=== PATIENT | female | born 1965 | race American Indian/Alaskan Native ===

== ENCOUNTER 2016-04-24 08:13 | Outpatient (CLI) | payer OTHER ==
--- NOTE | 2016-04-24 08:58 | Ultrasound Report ---
Mid back ultrasound: The patient presents with a history of feeling a lump just below her bra in the lower back for approximately 2 months. Imaging over the area of concern demonstrates a subcutaneous heterogeneously hypoechoic mass with partially defined smooth margins. It has a depth of 2.6 cm, width of approximately 4 cm and a height of 3.6 cm. No significant internal vascularity with color imaging. Impression: Nonspecific finding. This is consistent with a lipoma. Recommendation: Consider percutaneous biopsy if removal is not performed.
== END 2016-04-24 08:14 | disposition home or self-care (01) ==
LOC: SPVWC 08:13
PROVIDERS: ATTEND Family Medicine
DX: R22.2 Localized swelling, mass and lump, trunk (principal)
CPT/HCPCS: 76999

== ENCOUNTER 2017-01-15 15:10 | Outpatient (CLI) | payer OTHER ==
--- NOTE | 2017-01-15 16:17 | Mammography Report ---
BILATERAL MAMMOGRAM: FINDINGS: The breasts are almost entirely fat (<25% glandular). No suspicious mass, distortion, calcification, or skin change is seen. Right biopsy marker. No significant change compared to prior exams dating back to 2015. CAD was utilized. IMPRESSION: Negative mammogram. There is no mammographic evidence of malignancy. RECOMMENDATION: Follow-up per ACS guidelines. BI-RADS CATEGORY: 1 = Negative ACR BI-RADS MAMMOGRAPHIC CODES: 0 = Needs additional imaging evaluation; 1 = Negative; 2 = Benign; 3 = Probably benign; 4 = Suspicious; 5 = Malignant; 6 = Known biopsy-proven malignancy COMMENT: 1. Dense breast tissue, i.e., adenosis, fibrocystic changes, etc., may obscure an underlying neoplasm. 2. Approximately 10% of cancers are not detected with mammography. 3. A negative mammography report should not delay biopsy if a clinically suspicious mass is present. COMMENT: Patient follow-up letters are generated in [employer].
== END 2017-01-15 15:11 | disposition home or self-care (01) ==
LOC: SPVWC 15:10
PROVIDERS: ATTEND Family Medicine
DX: Z12.31 Encounter for screening mammogram for malignant neoplasm of breast (principal)
CPT/HCPCS: 77067; G0202

== ENCOUNTER 2018-01-19 10:35 | Outpatient (CLI) | payer OTHER ==
--- NOTE | 2018-01-19 16:13 | Mammography Report ---
BILATERAL DIGITAL SCREENING MAMMOGRAM with CAD: 01/19/18 10:35:00 CLINICAL: Routine screening. COMPARISON:01/15/17 and 01/19/16 FINDINGS: The breasts are almost entirely fatty.Right upper inner biopsy clip. Stable bilateral circumscribed masses. No new mass, architectural distortion or suspicious calcifications. IMPRESSION: No mammographic evidence of malignancy. BI-RADS CATEGORY: 2 -- Benign RECOMMENDATION: Routine mammographic screening in one year. COMMENT: Patient follow-up letters are generated by our [employer] application.
== END 2018-01-19 10:36 | disposition home or self-care (01) ==
LOC: SPVWC 10:35
PROVIDERS: ATTEND Family Medicine
DX: Z12.31 Encounter for screening mammogram for malignant neoplasm of breast (principal)
CPT/HCPCS: 77067

== ENCOUNTER 2019-02-22 11:51 | Outpatient (CLI) | payer OTHER ==
--- NOTE | 2019-02-23 14:58 | Mammography Report ---
DIGITAL SCREENING MAMMOGRAM WITH CAD, 02/22/2019 INDICATION: Routine screening mammography. TECHNIQUE: Digital bilateral 2D mammography was obtained in the craniocaudal and mediolateral obliq ue projections. This examination was interpreted with the benefit of Computer-Aided Detection analysi s. COMPARISON: 01/19/2018 and 12/09/2014 FINDINGS: Breast Density: The breasts are almost entirely fatty. There is no evidence of new mass, suspicious calcifications or architectural distortion in either blanca ast. Stable bilateral low-density circumscribed masses. A right inner biopsy clip and stable density at the clip. IMPRESSION: No mammographic evidence of malignancy. Follow up recommendation: Routine yearly BI-RADS Category 2: Benign. A "normal" or negative report should not discourage follow up or biopsy of a clinically significant f inding. A written summary of these findings will be mailed to the patient. The patient will be entered into a mammography reporting system which will generate a reminder letter for the patient's next appointmen t at the appropriate interval. The [employer] recommends yearly mammograms starting at age 40 and continuing as l lazaro as a woman is in good health. Breast MRI is recommended for women with an approximate 20-25% or greater lifetime risk of breast cancer, including women with a strong family history of breast or ova brandy cancer or who have been treated for Hodgkin's disease. Signer Name: Andrez Santamaria MD Signed: 02/23/2019 2:53 PM Workstation Name: [id number]
== END 2019-02-22 11:52 | disposition home or self-care (01) ==
LOC: SPVWC 11:51
PROVIDERS: ATTEND Family Medicine
DX: Z12.31 Encounter for screening mammogram for malignant neoplasm of breast (principal)
CPT/HCPCS: 77067

== ENCOUNTER 2020-02-24 14:47 | Outpatient (CLI) | payer OTHER ==
--- NOTE | 2020-02-24 16:42 | Mammography Report ---
DIGITAL SCREENING MAMMOGRAM WITH CAD, 02/24/2020 CLINICAL INFORMATION / INDICATION: Routine screening mammography. TECHNIQUE: Digital bilateral 2D mammography was obtained in the craniocaudal and mediolateral obliqu e projections. This examination was interpreted with the benefit of Computer-Aided Detection analysis . COMPARISON: 02/22/2019 FINDINGS: Breast Density: There are scattered areas of fibroglandular density. No dominant mass, suspicious calcifications, or architectural distortion in either breast. Right biopsy changes are again seen. Right calcifications and mild bilateral nodularity are stable. IMPRESSION: No mammographic evidence of malignancy. Follow up recommendation: Routine yearly BI-RADS Category 2: Benign. A "normal" or negative report should not discourage follow up or biopsy of a clinically significant f inding. A written summary of these findings will be mailed to the patient. The patient will be entered into a mammography reporting system which will generate a reminder letter for the patient's next appointmen t at the appropriate interval. The [employer] recommends yearly mammograms starting at age 40 and continuing as l lazaro as a woman is in good health. Breast MRI is recommended for women with an approximate 20-25% or greater lifetime risk of breast cancer, including women with a strong family history of breast or ova brandy cancer or who have been treated for Hodgkin's disease. Signer Name: Abraham Vázquez MD Signed: 02/24/2020 4:38 PM Workstation Name: [id number]
== END 2020-02-24 14:48 | disposition home or self-care (01) ==
LOC: SPVWC 14:47
PROVIDERS: ATTEND Family Medicine
DX: Z12.31 Encounter for screening mammogram for malignant neoplasm of breast (principal)
CPT/HCPCS: 77067

== ENCOUNTER 2021-04-21 15:00 | Emergency (ER) | payer OTHER ==
[2021-04-21 19:38] VITALS: BP 237/105
[2021-04-21] MEDS ORDERED: KETOROLAC 60 MG/2 ML INJ IM ONE (20:25)
[2021-04-21] MEDS ORDERED: ONDANSETRON 4 MG ODT TAB PO/SL ONE (20:25)
[2021-04-21 20:50] LABS: Alanine Aminotransferase 30 units/L (7-56); Albumin 4.3 g/dL (3.9-5); Blood Urea Nitrogen 12 mg/dL (7-17); Calcium 9.2 mg/dL (8.4-10.2); Hemolysis Index 0
[2021-04-21 21:05] LABS: BUN/Creatinine Ratio 30
[2021-04-21 21:06] LABS: Basophils % (Auto) 0.3 % (0.0-1.8); Hematocrit 44.4 % (30.3-42.9); Lymphocytes # (Auto) 1.9 K/mm3 (1.2-5.4); Lymphocytes % (Auto) 16.1 % (13.4-35.0); Mean Corpuscular HGB Conc 34 % (30-34); Mean Corpuscular Volume 81 fl (79-97); Monocytes # (Auto) 0.6 K/mm3 (0.0-0.8); Monocytes % (Auto) 4.7 % (0.0-7.3); Platelet Count 275 K/mm3 (140-440); Red Blood Count 5.47 M/mm3 (3.65-5.03)
--- NOTE | 2021-04-21 22:59 | Cat Scan Report ---
CT abdomen pelvis wo con INDICATION / CLINICAL INFORMATION: pain. TECHNIQUE: Axial CT imaging of abdomen and pelvis was obtained without contrast. Coronal and sagittal reformatte d imaging obtained and reviewed. All CT scans at this location are performed using CT dose reduction for ALARA by means of automated exposure control. COMPARISON: None available. FINDINGS: CT abdomen without contrast demonstrates grossly normal appearance of the liver, spleen, pancreas, an d adrenal glands. Gallbladder is present without obvious abnormality. Small hiatal hernia. There is mild to moderate right hydronephrosis present. Hydronephrosis is caused by a 5 mm calculus i n the right ureteral orifice. This calculus is on the verge of being passed into the urinary bladder. No residual calculi are seen within the right kidney. The left kidney contains intrarenal calculi but without obstruction. The largest calculus within the left kidney is 9 mm, mid pole region. A few tiny calculi are seen in the lower pole calyx. CT pelvis without contrast demonstrates moderate diverticulosis throughout the sigmoid colon. No pelv ic mass, free fluid, or focal inflammatory changes noted. A normal appendix is identified in the righ t lower quadrant. GI tract is otherwise unremarkable. Uterus is absent. Visualized lung bases are grossly clear. No acute osseous abnormality of significance. IMPRESSION: 1. Mild to moderate right hydronephrosis caused by a 5 mm calculus in the distal right ureter at the UVJ. 2. Left nephrolithiasis without obstruction. 3. Sigmoid diverticulosis. Signer Name: Justine Gorman MD Signed: 04/21/2021 10:55 PM Workstation Name: [id number]
--- NOTE | 2021-04-21 23:13 | Emergency Department Report ---
ED Abdominal Pain HPI - General Chief Complaint: Abdominal Pain Stated Complaint: ABD PAIN Time Seen by Provider: 04/21/21 20:23 Source: patient Mode of arrival: Ambulatory Limitations: No Limitations - History of Present Illness Initial Comments: rt flank pain today with nausea nof ever no rash -: Gradual, hour(s) Location: R flank Severity scale (0 -10): 7 Quality: aching Consistency: constant Worsens With: nothing - Related Data Previous Rx's Medication Instructions Recorded Last Taken Type Acetaminophen/Codeine [Tylenol 1 tab PO Q6H PRN #14 tab 04/21/21 Unknown Rx /Codeine # 3 tab] Ketorolac [Toradol] 10 mg PO Q6H PRN #14 tablet 04/21/21 Unknown Rx Allergies Allergy/AdvReac Type Severity Reaction Status Date / Time No Known Allergies Allergy Unverified 04/21/21 19:35 ED Review of Systems ROS: Stated complaint: ABD PAIN Other details as noted in HPI Constitutional: denies: chills, fever Eyes: denies: eye pain, eye discharge, vision change ENT: denies: ear pain, throat pain Respiratory: denies: cough, shortness of breath, wheezing Cardiovascular: denies: chest pain, palpitations Endocrine: no symptoms reported Gastrointestinal: denies: abdominal pain, nausea, diarrhea Genitourinary: denies: urgency, dysuria, discharge Musculoskeletal: denies: back pain, joint swelling, arthralgia Skin: denies: rash, lesions Neurological: denies: headache, weakness, paresthesias Psychiatric: denies: anxiety, depression Hematological/Lymphatic: denies: easy bleeding, easy bruising ED Past Medical Hx - Past Medical History Previous Medical History?: No - Surgical History Past Surgical History?: No - Medications Home Medications: Home Medications Medication Instructions Recorded Confirmed Last Taken Type Acetaminophen/Codeine [Tylenol 1 tab PO Q6H PRN #14 tab 04/21/21 Unknown Rx /Codeine # 3 tab] Ketorolac [Toradol] 10 mg PO Q6H PRN #14 tablet 04/21/21 Unknown Rx ED Physical Exam - General Limitations: No Limitations General appearance: alert, in no apparent distress - Head Head exam: Present: atraumatic, normocephalic - Eye Eye exam: Present: normal appearance - ENT ENT exam: Present: mucous membranes moist - Neck Neck exam: Present: normal inspection - Respiratory Respiratory exam: Present: normal lung sounds bilaterally. Absent: respiratory distress - Cardiovascular Cardiovascular Exam: Present: regular rate, normal rhythm. Absent: systolic murmur, diastolic murmur, rubs, gallop - GI/Abdominal GI/Abdominal exam: Present: soft, tenderness, normal bowel sounds - Rectal Rectal exam: Present: tenderness - Extremities Exam Extremities exam: Present: normal inspection - Back Exam Back exam: Present: normal inspection - Neurological Exam Neurological exam: Present: alert, oriented X3 - Psychiatric Psychiatric exam: Present: normal affect, normal mood - Skin Skin exam: Present: warm, dry, intact, normal color. Absent: rash ED Course Vital Signs 04/21/21 19:35 Temperature 97.5 F L Respiratory 18 Rate Blood Pressure 237/105 ED Medical Decision Making - Lab Data Result diagrams: 04/21/21 20:07 04/21/21 20:07 Critical care attestation.: If time is entered above; I have spent that time in minutes in the direct care of this critically ill patient, excluding procedure time. ED Disposition Clinical Impression: Renal colic on right side Disposition: 01 HOME / SELF CARE / HOMELESS Is pt being admited?: No Does the pt Need Aspirin: No Condition: Stable Instructions: Abdominal Pain (ED), Kidney Stones, [id number] Prescriptions: Ketorolac [Toradol] 10 mg PO Q6H PRN #14 tablet PRN Reason: Pain Acetaminophen/Codeine [Tylenol /Codeine # 3 tab] 1 tab PO Q6H PRN #14 tab PRN Reason: Pain, Moderate (4-6) Referrals: PRIMARY CARE,MD [Primary Care Provider] - 3-5 Days
[2021-04-21] MEDS ORDERED: MORPHINE 4 MG/1 ML INJ IM ONE (23:18)
== END 2021-04-21 23:25 | disposition home or self-care (01) ==
LOC: ED 15:00
DX: N23 Unspecified renal colic (principal)
CPT/HCPCS: 36415; 74176; 80053; 83690; 85025; 96372; 99284; J1885; J2270; J3490; Q0162